=== PATIENT | male | born 1990 | race Caucasian/White ===

== ENCOUNTER 2017-12-24 01:39 | Emergency (ER) | payer MEDICAID, OTHER ==
[~2017-12-24] VITALS: Ht 170.2 cm; Wt 72.6 kg
[2017-12-24] MEDS ORDERED: traMADol HCL 50 MG TAB PO ONE (07:15)
[2017-12-24 07:24] VITALS: BP 128/88
== END 2017-12-24 07:27 | disposition home or self-care (01) ==
LOC: ER 01:39
DX: S93.601A Unspecified sprain of right foot, initial encounter (principal); F17.210 Nicotine dependence, cigarettes, uncomplicated; W22.09XA Striking against other stationary object, initial encounter; Y93.89 Activity, other specified; Y99.8 Other external cause status; Y92.89 Other specified places as the place of occurrence of the external cause
CPT/HCPCS: 73620